=== PATIENT | male | born 1955 | race Hispanic/Latino ===

== ENCOUNTER 2023-03-30 10:48 | Inpatient (IN) | payer OTHER ==
[~2023-03-30] VITALS: Ht 152.4 cm; Wt 62.0 kg
[2023-03-30 12:13] LABS: BASOPHILS # (AUTO) 0.06 K/uL (0.00-0.20); BASOPHILS % (AUTO) 0.6 % (0.0-5.0); HEMATOCRIT 50.7 % (42-54); IMMATURE GRANULOCYTE ABSOLUTE 0.13 K/uL (0-1); LYMPHOCYTES # (AUTO) 1.3 K/uL (1.0-4.8); LYMPHOCYTES % (AUTO) 12.2 % (21.0-51.0); MEAN CORPUSCULAR HEMOGLOBIN 33.7 pg (27.0-33.0); MEAN CORPUSCULAR HGB CONC 34.9 g/dL (32.0-36.0); MEAN CORPUSCULAR VOLUME 96.4 fL (79-99); MONOCYTES # (AUTO) 1.2 K/uL (0.1-1.0); MONOCYTES % (AUTO) 11.4 % (3.0-13.0); NEUTROPHILS # (AUTO) 8.1 K/uL (1.8-7.7); NEUTROPHILS % (AUTO) 74.6 % (40.0-77.0); PLATELET COUNT (AUTO) 297 K/uL (130-400); RED BLOOD CELL COUNT(AUTO) 5.26 MIL/uL (4.50-6.20); RED CELL DISTRIBUTION WIDTH 12.8 % (11.0-15.5); WHITE BLOOD COUNT (AUTO) 10.9 K/uL (4.8-10.8)
[2023-03-30 12:22] LABS: CREATININE 0.9 mg/dL (0.5-1.5); POTASSIUM 4.4 mmol/L (3.5-5.1)
[2023-03-30 12:26] LABS: BILIRUBIN,TOTAL 0.7 mg/dL (0.2-1.0); MAGNESIUM 2.2 mg/dL (1.80-2.40)
[2023-03-30 12:52] LABS: APPEARANCE,URINE CLEAR (CLEAR); BILIRUBIN,URINE NEGATIVE (NEGATIVE); COLOR,URINE LIGHT-YELLOW (YELLOW); GLUCOSE, URINE (UA) NEGATIVE (NEGATIVE); KETONES,URINE 10 mg/dL (NEGATIVE); LEUKOCYTE ESTERASE ,URINE NEGATIVE Leu/uL (NEGATIVE); NITRATE,URINE NEGATIVE (NEGATIVE); OCCULT BLOOD,URINE NEGATIVE (NEGATIVE); PROTEIN,URINE NEGATIVE (NEGATIVE); UROBILINOGEN,URINE 0.2 mg/dL (0.2-1.0)
[2023-03-30 12:54] LABS: ADD UA MICROSCOPIC YES
[2023-03-30 13:01] LABS: RBC,URINE 0-1 /HPF (0-1); WBC,URINE 0-1 /HPF (0-1)
[2023-03-30] MEDS ORDERED: THIAMINE HCL 100 MG/ML 2ML VIAL IVP ONE (16:00)
[2023-03-30] MEDS: M.V.I. IV [ADULT] 10 ML, FOLIC ACID 1 MG, THIAMINE HCL 100 MG in 0.9%NACL 1000ML 1,000 ML IV SCH (16:27)
[2023-03-30] MEDS ORDERED: ACETAMINOPHEN 500 MG TABLET PO PRN (16:30)
[2023-03-30] MEDS ORDERED: NITROGLYCERIN 0.4 MG SL TAB SL PRN (16:30)
[2023-03-30] MEDS ORDERED: FOLIC ACID 5 MG/ML VIAL IV ONE (16:30)
[2023-03-30] MEDS ORDERED: CHLORDIAZEPOXIDE HCL 25 MG CAP PO PRN (16:30)
[2023-03-30] MEDS ORDERED: PHARMACY COMMUNICATION MISC PRN (16:30)
[2023-03-30] MEDS ORDERED: ONDANSETRON 4MG INJ IVP PRN (16:30)
[2023-03-30] MEDS ORDERED: LORAZEPAM 2 MG/ML 1 ML VIAL IVP PRN (16:30)
[2023-03-30 17:08] LABS: INR < 0.93 (0.85-1.15); PROTHROMBIN TIME 10.7 SEC (9.6-11.6)
[2023-03-30 17:09] LABS: PARTIAL THROMBOPLASTIN TIME 32.1 SEC (26.3-35.5)
[2023-03-30 17:30] LABS: THYROID STIMULATING HORMONE 2.28 uIU/mL (0.36-3.74)
[2023-03-30] MEDS ORDERED: HYDRALAZINE 20MG/ML VIAL IV PRN (19:00)
[2023-03-30] MEDS: FAMOTIDINE 20MG VIAL IV SCH (20:28)
[2023-03-30] MEDS: AMLODIPINE 5 MG TAB PO SCH (20:28)
[2023-03-30 21:30] LABS: AMPHET/METH SCREEN,URINE NEGATIVE (NEGATIVE); BARBITURATE SCREEN, URINE NEGATIVE (NEGATIVE); BENZODIAZEPINES SCREEN,URINE NEGATIVE (NEGATIVE); CANNABINOID SCREEN,URINE POSITIVE (NEGATIVE); COCAINE SCREEN,URINE NEGATIVE (NEGATIVE); OPIATE SCREEN,URINE NEGATIVE (NEGATIVE); PHENCYCLIDINE SCREEN,URINE NEGATIVE (NEGATIVE)
[2023-03-30 22:32] VITALS: O2SAT 96
[2023-03-30 23:23] VITALS: BP 178/82; PULSE 63; RESP 18
[2023-03-31] VITALS (8 sets, daily range): BP systolic 137–191; BP diastolic 62–96; PULSE 63–81; RESP 16–20; O2SAT 98
[2023-03-31 04:58] LABS: BASOPHILS # (AUTO) 0.09 K/uL (0.00-0.20); BASOPHILS % (AUTO) 1.1 % (0.0-5.0); HEMATOCRIT 48.4 % (42-54); IMMATURE GRANULOCYTE ABSOLUTE 0.08 K/uL (0-1); LYMPHOCYTES % (AUTO) 23.1 % (21.0-51.0); MEAN CORPUSCULAR HEMOGLOBIN 33.6 pg (27.0-33.0); MEAN CORPUSCULAR HGB CONC 34.3 g/dL (32.0-36.0); MONOCYTES # (AUTO) 0.9 K/uL (0.1-1.0); MONOCYTES % (AUTO) 11.1 % (3.0-13.0); NEUTROPHILS # (AUTO) 5.4 K/uL (1.8-7.7); NEUTROPHILS % (AUTO) 63.8 % (40.0-77.0); PLATELET COUNT (AUTO) 266 K/uL (130-400); RED BLOOD CELL COUNT(AUTO) 4.94 MIL/uL (4.50-6.20); RED CELL DISTRIBUTION WIDTH 12.7 % (11.0-15.5); WHITE BLOOD COUNT (AUTO) 8.5 K/uL (4.8-10.8)
[2023-03-31 05:30] LABS: ALBUMIN 2.9 g/dL (3.5-5.0); BILIRUBIN,TOTAL 0.7 mg/dL (0.2-1.0); CREATININE 0.8 mg/dL (0.5-1.5); POTASSIUM 3.6 mmol/L (3.5-5.1); TOTAL PROTEIN, SERUM 6.6 g/dL (6.0-8.3)
[2023-03-31] MEDS: FAMOTIDINE 20MG VIAL IV SCH ×2 (08:52→19:45)
[2023-03-31] MEDS: M.V.I. IV [ADULT] 10 ML, FOLIC ACID 1 MG, THIAMINE HCL 100 MG in 0.9%NACL 1000ML 1,000 ML IV SCH (09:58)
[2023-03-31] MEDS ORDERED: IOHEXOL-350 75 ML VIAL IV ONE (16:46)
[2023-03-31] MEDS: AMLODIPINE 5 MG TAB PO SCH (19:45)
[2023-04-01] VITALS (16 sets, daily range): BP systolic 117–173; BP diastolic 60–109; PULSE 64–83; RESP 16–20; O2SAT 97
[2023-04-01] MEDS: FAMOTIDINE 20MG VIAL IV SCH ×2 (09:52→20:01)
[2023-04-01] MEDS: M.V.I. IV [ADULT] 10 ML, FOLIC ACID 1 MG, THIAMINE HCL 100 MG in 0.9%NACL 1000ML 1,000 ML IV SCH (09:54)
[2023-04-01 10:07] LABS: CHOLESTEROL 153 mg/dL (<200); HDL CHOLESTEROL 45 mg/dL (29-71); LDL DIRECT 88 mg/dL (0-99); TRIGLYCERIDES 106 mg/dL (30-200)
[2023-04-01] MEDS: ASPIRIN 81 MG EC TAB PO SCH (15:28)
[2023-04-01] MEDS: AMLODIPINE 5 MG TAB PO SCH (18:51)
[2023-04-01] MEDS: ATORVASTATIN 40 MG TABLET PO SCH (20:01)
[2023-04-02] VITALS (11 sets, daily range): BP systolic 132–190; BP diastolic 70–97; PULSE 57–80; RESP 16–20; O2SAT 96
[2023-04-02] MEDS: M.V.I. IV [ADULT] 10 ML, FOLIC ACID 1 MG, THIAMINE HCL 100 MG in 0.9%NACL 1000ML 1,000 ML IV SCH (07:22)
[2023-04-02] MEDS ORDERED: COMPOUND IV REFRIGERATED 1 EACH MISC ONE (07:22)
[2023-04-02] MEDS: METOPROLOL TARTRATE 50 MG TAB PO SCH (08:06)
[2023-04-02] MEDS: FAMOTIDINE 20MG VIAL IV SCH ×2 (08:06→19:56)
[2023-04-02] MEDS: ASPIRIN 81 MG EC TAB PO SCH (08:06)
[2023-04-02] MEDS: AMLODIPINE 5 MG TAB PO SCH (18:27)
[2023-04-02] MEDS: ATORVASTATIN 40 MG TABLET PO SCH (19:56)
[2023-04-03] VITALS (9 sets, daily range): BP systolic 136–182; BP diastolic 56–93; PULSE 53–93; RESP 18–20; O2SAT 98
[2023-04-03] MEDS: METOPROLOL TARTRATE 50 MG TAB PO SCH (08:25)
[2023-04-03] MEDS: ASPIRIN 81 MG EC TAB PO SCH (08:25)
[2023-04-03] MEDS: FAMOTIDINE 20MG VIAL IV SCH ×2 (08:25→21:33)
[2023-04-03] MEDS ORDERED: METO50 PO (11:57)
[2023-04-03] MEDS ORDERED: AEC81 PO (11:57)
[2023-04-03] MEDS ORDERED: ATOR40TA69 PO (11:57)
[2023-04-03] MEDS: AMLODIPINE 5 MG TAB PO SCH (17:54)
[2023-04-03] MEDS: ATORVASTATIN 40 MG TABLET PO SCH (21:32)
[2023-04-04 04:00] VITALS: BP 156/87; PULSE 70; RESP 18
[2023-04-04 08:09] VITALS: BP 151/89; PULSE 72; RESP 18
[2023-04-04 09:30] VITALS: O2SAT 99
[2023-04-04] MEDS: METOPROLOL TARTRATE 50 MG TAB PO SCH (09:51)
[2023-04-04] MEDS: ASPIRIN 81 MG EC TAB PO SCH (09:51)
[2023-04-04] MEDS: FAMOTIDINE 20MG VIAL IV SCH (09:51)
[2023-04-04 11:58] VITALS: BP 153/67; PULSE 56; RESP 19
[2023-04-04] MEDS ORDERED: NITR0.4T50 SL (13:39)
== END 2023-04-04 17:20 | disposition home or self-care (01) | DRG 315 ==
LOC: EDH 10:48 → EDHIP 10:49 → 4DH 22:32
PROVIDERS: ADMIT Internal Medicine; ATTEND Internal Medicine
DX: I95.9 Hypotension, unspecified (principal); E44.0 Moderate protein-calorie malnutrition; E87.1 Hypo-osmolality and hyponatremia; I25.110 Atherosclerotic heart disease of native coronary artery with unstable angina pectoris; I48.92 Unspecified atrial flutter; I11.9 Hypertensive heart disease without heart failure; E86.0 Dehydration; I45.10 Unspecified right bundle-branch block; I73.9 Peripheral vascular disease, unspecified; E78.00 Pure hypercholesterolemia, unspecified; E86.1 Hypovolemia; F14.90 Cocaine use, unspecified, uncomplicated; F17.210 Nicotine dependence, cigarettes, uncomplicated; I65.21 Occlusion and stenosis of right carotid artery; F12.10 Cannabis abuse, uncomplicated; F10.20 Alcohol dependence, uncomplicated; K21.9 Gastro-esophageal reflux disease without esophagitis; Z82.3 Family history of stroke; Z82.49 Family history of ischemic heart disease and other diseases of the circulatory system; Z91.148 Patient's other noncompliance with medication regimen for other reason; Z79.01 Long term (current) use of anticoagulants; Z68.26 Body mass index [BMI] 26.0-26.9, adult
CPT/HCPCS: 36415; 70450; 70498; 71045; 72125; 73620; 76705; 80053; 80061; 80305; 81001; 82533; 82550; 83735; 83874; 83880; 84439; 84443; 84481; 84484; 85025; 85610; 85730; 87040; 93005; 93306; 93356; 93880; G0378; J0360; J2060; J3411; J3490; J7030; Q9967; 73560

== ENCOUNTER 2023-04-14 10:11 | Observation (INO) | payer OTHER ==
[~2023-04-14] VITALS: Ht 160 cm; Wt 61.3 kg
[~2023-04-14 10:11] MED LIST: AEC81 PO; ATOR40TA69 PO; METO50 PO; NITR0.4T50 SL
[2023-04-14 10:37] LABS: HEMATOCRIT 44.8 % (42-54); MEAN CORPUSCULAR HEMOGLOBIN 32.7 pg (27.0-33.0); MEAN CORPUSCULAR HGB CONC 33.3 g/dL (32.0-36.0); MEAN CORPUSCULAR VOLUME 98.2 fL (79-99); PLATELET COUNT (AUTO) 317 K/uL (130-400); RED BLOOD CELL COUNT(AUTO) 4.56 MIL/uL (4.50-6.20); RED CELL DISTRIBUTION WIDTH 11.9 % (11.0-15.5); WHITE BLOOD COUNT (AUTO) 8.5 K/uL (4.8-10.8)
[2023-04-14 10:46] LABS: POTASSIUM 4.1 mmol/L (3.5-5.1)
[2023-04-14] MEDS ORDERED: NITROGLYCERIN 1GM OINT 1 INCH/1GM TD ONE ×2 (10:46→11:00)
[2023-04-14 10:51] LABS: ALBUMIN 3.3 g/dL (3.5-5.0); BILIRUBIN,TOTAL 0.4 mg/dL (0.2-1.0); MAGNESIUM 2.2 mg/dL (1.80-2.40); TOTAL PROTEIN, SERUM 6.8 g/dL (6.0-8.3)
[2023-04-14 11:21] LABS: BASOPHILS % (AUTO) 1.2 % (0.0-5.0); IMMATURE GRANULOCYTE ABSOLUTE 0.05 K/uL (0-1); LYMPHOCYTES # (AUTO) 1.7 K/uL (1.0-4.8); LYMPHOCYTES % (AUTO) 19.5 % (21.0-51.0); MONOCYTES # (AUTO) 0.9 K/uL (0.1-1.0); NEUTROPHILS # (AUTO) 5.8 K/uL (1.8-7.7); NEUTROPHILS % (AUTO) 67.7 % (40.0-77.0)
[2023-04-14] MEDS ORDERED: ENOXAPARIN SODIUM 60 MG/0.6 ML SQ ONE (13:00)
[2023-04-14] MEDS ORDERED: LACTULOSE 20 GM/30 ML UDCUP PO PRN (14:00)
[2023-04-14] MEDS ORDERED: ONDANSETRON 4MG INJ IV PRN (14:00)
[2023-04-14] MEDS ORDERED: ACETAMINOPHEN 325 MG TAB PO PRN ×2 (14:00)
[2023-04-14] MEDS ORDERED: PHARMACY COMMUNICATION MISC PRN (14:30)
[2023-04-14] MEDS ORDERED: CHLORDIAZEPOXIDE HCL 25 MG CAP PO PRN (14:30)
[2023-04-14] MEDS ORDERED: LORAZEPAM 2 MG/ML 1 ML VIAL IVP PRN (14:30)
[2023-04-14] MEDS ORDERED: THIAMINE HCL 100 MG, FOLIC ACID 1 MG, M.V.I. IV [ADULT] 10 ML in 0.9%NACL 1000ML 1,000 ML IV SCH (14:30)
[2023-04-14 14:32] LABS: INR 0.94 (0.85-1.15); PROTHROMBIN TIME 10.9 SEC (9.6-11.6)
[2023-04-14 14:34] LABS: PARTIAL THROMBOPLASTIN TIME 31.9 SEC (26.3-35.5)
[2023-04-14 14:36] LABS: APPEARANCE,URINE CLEAR (CLEAR); BILIRUBIN,URINE NEGATIVE (NEGATIVE); COLOR,URINE YELLOW (YELLOW); GLUCOSE, URINE (UA) NEGATIVE (NEGATIVE); KETONES,URINE NEGATIVE (NEGATIVE); LEUKOCYTE ESTERASE ,URINE NEGATIVE Leu/uL (NEGATIVE); NITRATE,URINE NEGATIVE (NEGATIVE); OCCULT BLOOD,URINE NEGATIVE (NEGATIVE); PH,URINE 5.5 (5.0-8.0); PROTEIN,URINE NEGATIVE (NEGATIVE); UROBILINOGEN,URINE 0.2 mg/dL (0.2-1.0)
[2023-04-14 14:38] LABS: ADD UA MICROSCOPIC YES
[2023-04-14 14:46] LABS: AMPHET/METH SCREEN,URINE NEGATIVE (NEGATIVE); BARBITURATE SCREEN, URINE NEGATIVE (NEGATIVE); BENZODIAZEPINES SCREEN,URINE NEGATIVE (NEGATIVE); CANNABINOID SCREEN,URINE POSITIVE (NEGATIVE); COCAINE SCREEN,URINE NEGATIVE (NEGATIVE); OPIATE SCREEN,URINE NEGATIVE (NEGATIVE); PHENCYCLIDINE SCREEN,URINE NEGATIVE (NEGATIVE)
[2023-04-14 15:00] LABS: BACTERIA,URINE RARE /HPF (None Seen); MUCUS,URINE RARE LPF (None Seen); SQUAMOUS EPITHELIAL CELL,UR RARE /HPF (0-2); WBC,URINE 0-1 /HPF (0-1)
[2023-04-14] MEDS: FAMOTIDINE 20MG TAB PO SCH (20:55)
[2023-04-14 22:30] VITALS: BP 151/76; PULSE 58; RESP 18; O2SAT 97
[2023-04-15 04:28] VITALS: BP 136/66; PULSE 56; RESP 18
[2023-04-15 05:24] LABS: MEAN CORPUSCULAR HEMOGLOBIN 32.9 pg (27.0-33.0); MEAN CORPUSCULAR HGB CONC 33.6 g/dL (32.0-36.0); MEAN CORPUSCULAR VOLUME 98.1 fL (79-99); RED BLOOD CELL COUNT(AUTO) 4.28 MIL/uL (4.50-6.20); WHITE BLOOD COUNT (AUTO) 9.8 K/uL (4.8-10.8)
[2023-04-15 05:37] LABS: MAGNESIUM 2.1 mg/dL (1.80-2.40); POTASSIUM 4.4 mmol/L (3.5-5.1)
[2023-04-15 07:47] VITALS: BP 131/71; PULSE 56; RESP 16
[2023-04-15 08:00] VITALS: O2SAT 99
[2023-04-15] MEDS: FAMOTIDINE 20MG TAB PO SCH (08:44)
[2023-04-15] MEDS ORDERED: ENOXAPARIN SODIUM 30 MG/0.3 ML SQ SCH (09:00)
[2023-04-15] MEDS ORDERED: ASPIRIN 81 MG EC TAB PO SCH (09:00)
[2023-04-15] MEDS ORDERED: METOPROLOL TARTRATE 50 MG TAB PO SCH (09:00)
[2023-04-15] MEDS ORDERED: COMPOUND IV REFRIGERATED 1 EACH IVSOLN MISC PRN (11:30)
== END 2023-04-15 12:25 | disposition home or self-care (01) ==
LOC: EDH 10:11 → INTOOBSV 10:12 → EDHIP 10:12 → UNDOADMIN 13:39 → EDHIP 13:39 → 3AH 22:07 → EDHIP 22:07
PROVIDERS: ADMIT Internal Medicine; ATTEND Internal Medicine
DX: I20.0 Unstable angina (principal); I11.0 Hypertensive heart disease with heart failure; I50.33 Acute on chronic diastolic (congestive) heart failure; I48.91 Unspecified atrial fibrillation; K59.00 Constipation, unspecified; G47.00 Insomnia, unspecified; I65.29 Occlusion and stenosis of unspecified carotid artery; E78.5 Hyperlipidemia, unspecified; F12.90 Cannabis use, unspecified, uncomplicated; F17.200 Nicotine dependence, unspecified, uncomplicated; F19.10 Other psychoactive substance abuse, uncomplicated; Z79.82 Long term (current) use of aspirin; Z91.148 Patient's other noncompliance with medication regimen for other reason; Z91.199 Patient's noncompliance with other medical treatment and regimen due to unspecified reason; Z79.899 Other long term (current) drug therapy; Z98.890 Other specified postprocedural states
CPT/HCPCS: 96372 ×2; 96365; 96375; 99285; 83735 ×2; 84484 ×3; 80053; 83880; 80305; 85025; 85610; 85730; 81001; 36415 ×2; 71045; 93005 ×2; 80061; 80048; 85027; J7030; J3411; J2405; J3490; J1650 ×2; G0378 ×2

== ENCOUNTER 2023-05-13 15:06 | Inpatient (IN) | payer OTHER ==
[~2023-05-13] VITALS: Ht 180.3 cm; Wt 63.9 kg
[2023-05-13] MEDS ORDERED: DILTIAZEM 25MG INJ IVP ONE (15:30)
[2023-05-13 16:05] LABS: BASOPHILS # (AUTO) 0.05 K/uL (0.00-0.20); BASOPHILS % (AUTO) 0.6 % (0.0-5.0); HEMATOCRIT 42.9 % (42-54); IMMATURE GRANULOCYTE ABSOLUTE 0.11 K/uL (0-1); LYMPHOCYTES # (AUTO) 2.2 K/uL (1.0-4.8); LYMPHOCYTES % (AUTO) 23.9 % (21.0-51.0); MEAN CORPUSCULAR HEMOGLOBIN 32.2 pg (27.0-33.0); MEAN CORPUSCULAR HGB CONC 33.8 g/dL (32.0-36.0); MEAN CORPUSCULAR VOLUME 95.3 fL (79-99); MONOCYTES % (AUTO) 10.8 % (3.0-13.0); NEUTROPHILS # (AUTO) 5.7 K/uL (1.8-7.7); NEUTROPHILS % (AUTO) 63.5 % (40.0-77.0); PLATELET COUNT (AUTO) 270 K/uL (130-400); RED CELL DISTRIBUTION WIDTH 11.9 % (11.0-15.5)
[2023-05-13 16:17] LABS: POTASSIUM 4.3 mmol/L (3.5-5.1)
[2023-05-13 16:22] LABS: ALBUMIN 3.1 g/dL (3.5-5.0); BILIRUBIN,TOTAL 0.2 mg/dL (0.2-1.0)
[2023-05-13] MEDS ORDERED: DEXTROSE 50%-WATER 50 ML DISP.SYRIN IV PRN (22:00)
[2023-05-13] MEDS ORDERED: GLUCAGON 1MG KIT 1 MG ML IM PRN (22:00)
[2023-05-13] MEDS ORDERED: ONDANSETRON 4MG INJ IV PRN (22:00)
[2023-05-13] MEDS ORDERED: NITROGLYCERIN 0.4 MG SL TAB SL PRN (22:00)
[2023-05-13] MEDS ORDERED: ACETAMINOPHEN 325 MG TAB PO PRN ×2 (22:00)
[2023-05-14] VITALS (9 sets, daily range): BP systolic 123–154; BP diastolic 58–87; PULSE 54–71; RESP 18; O2SAT 96–98
[2023-05-14 04:06] LABS: AMPHET/METH SCREEN,URINE NEGATIVE (NEGATIVE); BARBITURATE SCREEN, URINE NEGATIVE (NEGATIVE); BENZODIAZEPINES SCREEN,URINE NEGATIVE (NEGATIVE); CANNABINOID SCREEN,URINE NEGATIVE (NEGATIVE); COCAINE SCREEN,URINE NEGATIVE (NEGATIVE); OPIATE SCREEN,URINE NEGATIVE (NEGATIVE); PHENCYCLIDINE SCREEN,URINE NEGATIVE (NEGATIVE)
[2023-05-14 06:25] LABS: HEMATOCRIT 47.6 % (42-54); MEAN CORPUSCULAR HEMOGLOBIN 31.6 pg (27.0-33.0); MEAN CORPUSCULAR HGB CONC 32.4 g/dL (32.0-36.0); MEAN CORPUSCULAR VOLUME 97.7 fL (79-99); RED BLOOD CELL COUNT(AUTO) 4.87 MIL/uL (4.50-6.20); RED CELL DISTRIBUTION WIDTH 11.9 % (11.0-15.5)
[2023-05-14 06:46] LABS: ALBUMIN 3.2 g/dL (3.5-5.0); BILIRUBIN,TOTAL 0.4 mg/dL (0.2-1.0); POTASSIUM 4.5 mmol/L (3.5-5.1); THYROID STIMULATING HORMONE 3.61 uIU/mL (0.36-3.74); TOTAL PROTEIN, SERUM 7.4 g/dL (6.0-8.3)
[2023-05-14] MEDS: INSULIN HUMULIN R 100 UNIT/ML 3ML SQ SCH ×4 (07:30→20:54)
[2023-05-14] MEDS ORDERED: METOPROLOL TARTRATE 25 MG TAB PO SCH (09:00)
[2023-05-14] MEDS: FAMOTIDINE 20MG TAB PO SCH ×2 (09:41→20:52)
[2023-05-14] MEDS: ENOXAPARIN SODIUM 30 MG/0.3 ML SQ SCH (09:41)
[2023-05-14] MEDS: METOPROLOL TARTRATE 25 MG TAB PO SCH (20:50)
[2023-05-14] MEDS: ASPIRIN 81 MG EC TAB PO SCH (20:51)
[2023-05-14] MEDS ORDERED: ATORVASTATIN 40 MG TABLET PO SCH (21:00)
[2023-05-15 08:00] VITALS: O2SAT 96
[2023-05-15] MEDS: FAMOTIDINE 20MG TAB PO SCH (09:00)
[2023-05-15] MEDS: ENOXAPARIN SODIUM 30 MG/0.3 ML SQ SCH (09:00)
[2023-05-15] MEDS: METOPROLOL TARTRATE 25 MG TAB PO SCH (09:00)
[2023-05-15] MEDS: ASPIRIN 81 MG EC TAB PO SCH (09:00)
[2023-05-15 14:42] LABS: BASOPHILS # (AUTO) 0.06 K/uL (0.00-0.20); BASOPHILS % (AUTO) 0.7 % (0.0-5.0); HEMATOCRIT 44.4 % (42-54); IMMATURE GRANULOCYTE ABSOLUTE 0.11 K/uL (0-1); LYMPHOCYTES # (AUTO) 2.1 K/uL (1.0-4.8); MEAN CORPUSCULAR HEMOGLOBIN 31.9 pg (27.0-33.0); MEAN CORPUSCULAR HGB CONC 32.9 g/dL (32.0-36.0); MEAN CORPUSCULAR VOLUME 96.9 fL (79-99); MONOCYTES # (AUTO) 0.9 K/uL (0.1-1.0); MONOCYTES % (AUTO) 10.7 % (3.0-13.0); NEUTROPHILS # (AUTO) 5.3 K/uL (1.8-7.7); NEUTROPHILS % (AUTO) 62.3 % (40.0-77.0); PLATELET COUNT (AUTO) 239 K/uL (130-400); RED BLOOD CELL COUNT(AUTO) 4.58 MIL/uL (4.50-6.20); RED CELL DISTRIBUTION WIDTH 11.9 % (11.0-15.5); WHITE BLOOD COUNT (AUTO) 8.5 K/uL (4.8-10.8)
[2023-05-15 16:00] VITALS: BP 129/76; PULSE 65; RESP 18
[2023-05-15 17:06] LABS: CREATININE 1.2 mg/dL (0.5-1.5); MAGNESIUM 2.2 mg/dL (1.80-2.40); POTASSIUM 4.7 mmol/L (3.5-5.1)
== END 2023-05-15 16:35 | disposition home or self-care (01) | DRG 310 ==
LOC: EDH 15:06 → EDHIP 15:07 → 3AH 05-14 02:25
PROVIDERS: ADMIT Hospitalist; ATTEND Hospitalist
DX: I48.92 Unspecified atrial flutter (principal); I48.91 Unspecified atrial fibrillation; I25.10 Atherosclerotic heart disease of native coronary artery without angina pectoris; E78.00 Pure hypercholesterolemia, unspecified; I10 Essential (primary) hypertension; I73.9 Peripheral vascular disease, unspecified; Z79.82 Long term (current) use of aspirin; Z79.899 Other long term (current) drug therapy; Z87.891 Personal history of nicotine dependence
CPT/HCPCS: 36415; 71045; 80048; 80053; 80305; 82948; 83735; 83880; 84443; 84484; 85025; 85027; 93005; G0378; J1650

== ENCOUNTER 2023-12-12 17:36 | Emergency (ER) | payer MEDICAID, OTHER ==
[~2023-12-12] VITALS: Ht 165.1 cm; Wt 68.0 kg
[2023-12-12 18:06] LABS: BASOPHILS # (AUTO) 0.05 K/uL (0.00-0.20); BASOPHILS % (AUTO) 0.5 % (0.0-5.0); HEMATOCRIT 43.9 % (42-54); IMMATURE GRANULOCYTE ABSOLUTE 0.11 K/uL (0-1); LYMPHOCYTES # (AUTO) 2.1 K/uL (1.0-4.8); LYMPHOCYTES % (AUTO) 21.6 % (21.0-51.0); MEAN CORPUSCULAR HEMOGLOBIN 32.2 pg (27.0-33.0); MEAN CORPUSCULAR HGB CONC 33.5 g/dL (32.0-36.0); MEAN CORPUSCULAR VOLUME 96.1 fL (79-99); MONOCYTES # (AUTO) 0.9 K/uL (0.1-1.0); MONOCYTES % (AUTO) 9.5 % (3.0-13.0); NEUTROPHILS # (AUTO) 6.4 K/uL (1.8-7.7); NEUTROPHILS % (AUTO) 67.2 % (40.0-77.0); PLATELET COUNT (AUTO) 230 K/uL (130-400); RED BLOOD CELL COUNT(AUTO) 4.57 MIL/uL (4.50-6.20); RED CELL DISTRIBUTION WIDTH 13.8 % (11.0-15.5); WHITE BLOOD COUNT (AUTO) 9.6 K/uL (4.8-10.8)
[2023-12-12 18:17] LABS: CREATININE 1.1 mg/dL (0.5-1.3); POTASSIUM 4.1 mmol/L (3.5-5.1)
[2023-12-12 18:22] LABS: ALBUMIN 3.2 g/dL (3.5-5.0); BILIRUBIN,TOTAL 0.3 mg/dL (0.2-1.0); TOTAL PROTEIN, SERUM 6.5 g/dL (6.0-8.3)
[2023-12-12] MEDS: 0.9%NACL 1000ML 1,000 ML IV SCH (20:06)
[2023-12-12 20:55] VITALS: BP 112/72; PULSE 77; RESP 18; O2SAT 99
== END 2023-12-12 20:59 | disposition home or self-care (01) ==
LOC: EDH 17:36
DX: I10 Essential (primary) hypertension (principal); I48.91 Unspecified atrial fibrillation; Z79.82 Long term (current) use of aspirin; Z79.899 Other long term (current) drug therapy
CPT/HCPCS: 99284; 70450; 96360; 80053; 85025; 36415; 72125; J7030

== ENCOUNTER 2024-01-21 13:33 | Emergency (ER) | payer MEDICAID ==
[~2024-01-21] VITALS: Ht 167.6 cm; Wt 66.2 kg
[2024-01-21 15:07] VITALS: BP 146/68; PULSE 70; RESP 17; O2SAT 97
== END 2024-01-21 15:45 | disposition home or self-care (01) ==
LOC: EDH 13:33
DX: S29.012A Strain of muscle and tendon of back wall of thorax, initial encounter (principal); I10 Essential (primary) hypertension; M19.90 Unspecified osteoarthritis, unspecified site; Z79.82 Long term (current) use of aspirin; Z79.899 Other long term (current) drug therapy; Z98.890 Other specified postprocedural states; X58.XXXA Exposure to other specified factors, initial encounter; Y93.89 Activity, other specified; Y92.89 Other specified places as the place of occurrence of the external cause; Y99.8 Other external cause status
CPT/HCPCS: 70450; 72040; 72070

== ENCOUNTER 2024-07-29 08:51 | Emergency (ER) | payer MEDICAID ==
[~2024-07-29] VITALS: Ht 170.2 cm; Wt 77.1 kg
[2024-07-29 08:52] VITALS: BP 180/89; PULSE 67; RESP 20; TEMP 98.4
--- NOTE | 2024-07-29 09:05 | ERN ---
General Chief Complaint: Medical Clearance Stated Complaint: MEDICAL CLEARANCE Time Seen by MD: 08:52 Source: patient, family History of Present Illness Initial Comments PATIENT IS A 68-YEAR-OLD MALE COMING IN TO BE EVALUATED FOR GENERALIZED WORKUP. PER PATIENT HE WAS SEEN BY APS ON THE OF THIS MONTH AND WAS ADVISED TO GO TO THE HOSPITAL AFTER HE DID CANNABIS. PATIENT STATES THAT HE HAS NO CURRENT COMPLAINTS AND FEELS GOOD. Allergies: Coded Allergies: No Known Drug Allergies (Unverified Allergy, Unknown, 03/30/23) Home Meds Active Scripts Nitroglycerin (Nitroglycerin) 0.4 Mg Tab.subl, 0.4 MG SL AD PRN for chest pain for 30 Days, #30 TAB.SL Prov:ALEX ROSS NP 04/04/23 Metoprolol Tartrate (Lopressor 50Mg Tab) 50 Mg Tab, 50 MG PO DAILY for 30 Days, #60 TAB Prov:ALEX ROSS NP 04/03/23 Atorvastatin Calcium (LIPITOR) 40 Mg Tablet, 40 MG PO HS for 30 Days, #30 TAB Prov:ALEX ROSS NP 04/03/23 Aspirin (ASPIRIN 81 MG ECTAB) 81 Mg Ectab, 81 MG PO DAILY for 30 Days, #30 TAB.EC Prov:ALEX ROSS NP 04/03/23 Past Medical History Past Medical History: High Cholesterol, Heart Disease, Hypertension Past Surgical History: Other Surgical History Other: HEART CATH Social History Social History: Lives with family, Other ROS Dictation CONSTITUTIONAL: NO CHILLS, NO FEVER, NO WEAKNESS, NO DIAPHORESIS, NO MALAISE. HEAD/FACE: NO SIGNS OF TRAUMA. EENT: NO EYE PAIN, NO BLURRED VISION, NO TEARING, NO DOUBLE VISION, NO EAR PAIN, NO EAR DISCHARGE, NO NOSE PAIN, NO NASAL CONGESTION, NO THROAT PAIN, NO THROAT SWELLING, NO MOUTH PAIN. RESPIRATORY: NO COUGH, NO ORTHOPNEA, NO SOB, NO STRIDOR, NO WHEEZING. CARDIOVASCULAR: NO CHEST PAIN, NO EDEMA, NO PALPITATIONS, NO SYNCOPE. GASTROINTESTINAL/ABDOMINAL: NO ABDOMINAL PAIN, NO CONSTIPATION, NO DIARRHEA, NO NAUSEA, NO VOMITING. GENITOURINARY: NO ABNORMAL DISCHARGE, NO DYSURIA, NO FREQUENT URINATION, NO HEMATURIA. NO COMPLAINTS OF PAIN IN THE GENITALS. MUSCULOSKELETAL: NO BACK PAIN, NO GOUT, NO JOINT PAIN, NO JOINT SWELLING, NO MUSCLE PAIN, NO MUSCLE STIFFNESS, NO NECK PAIN. INTEGUMENTARY: NO CHANGE IN COLOR, NO CHANGE IN HAIR/NAILS, NO DRYNESS, NO LESION, NO LUMPS, NO RASH. NEUROLOGICAL/PSYCH: NO ANXIETY, NOT DEPRESSED, NO EMOTIONAL PROBLEM, NO HEADACHE, NO NUMBNESS, NO PRE-EXISTING DEFICIT, NO HISTORY OF SEIZURES, NO TREMORS, NO WEAKNESS. HEMATOLOGIC/LYMPHATIC: NOT ANEMIC, NO HISTORY OF BLOOD CLOTS, NO APPARENT BLEED ING, NO BRUISING, GLANDS NOT SWOLLEN. ALL SYSTEMS NEGATIVE, EXCEPT NOTED. Physical Exam Physical Exam Dictation VITAL SIGNS: REVIEWED. GENERAL APPEARANCE: ALERT, ORIENTED X3, NO ACUTE DISTRESS, OBESE. HEAD AND FACE: NON-TRAUMATIC. EYES: PERRL, PINK CONJUNCTIVAS, EYELID NO TRAUMA, ANTERIOR CHAMBER CLEAR. EARS: PINNAS INTACT AND NO SIGNS OF TRAUMA OR ERYTHEMA. EAR CANALS CLEAR AND NO DISCHARGE. TMS NO ERYTHEMA. NOSE: NO DISCHARGE, NO BLEEDING. OROPHARYNX: MOUTH NORMAL, TEETH NO CARIES, TONGUE PINK. PHARYNX CLEAR, NO ERYTHEMA. TONSILS NO EXUDATES, NO ABSCESSES NOTED. MUCOUS MEMBRANE MOIST. NECK: SUPPLE, NON-TENDER, NO THYROMEGALY, NO MASSES, NO JVD, NO BRUITS. BREAST: DEFERRED. CHEST: NO TENDERNESS, NO CREPITUS, NO PARADOXICAL MOVEMENT, NO RETRACTIONS. LUNGS: CLEAR, WELL-VENTILATED, SYMMETRIC, NO RALES, NO WHEEZING, NO RHONCHI, NO STRIDOR, GOOD BREATH SOUNDS BILATERALLY. HEART: REGULAR RATE, REGULAR RHYTHM, NO MURMUR, NO GALLOPS. VASCULAR: NO PERIPHERAL EDEMA. ABDOMEN: SOFT, POSITIVE BOWEL SOUNDS, NONDISTENDED, NO GUARDING, NONTENDER, NO REBOUND, NO MASSES NO HEPATOMEGALY, NO SPLENOMEGALY, NO SMILEY'S SIGN, NO HERNIAS. RECTAL: DEFERRED. GENITAL: DEFERRED. NEUROLOGICAL: NORMAL SPEECH, GROSS MOTOR FUNCTION INTACT, GROSS SENSORY FUNCTION INTACT. MUSCULOSKELETAL: NECK NONTENDER, FULL RANGE OF MOTION, BACK NONTENDER, FULL RANGE OF MOTION. EXTREMITIES: NONTENDER, FULL RANGE OF MOTION. SKIN: COLOR PINK, DRY, NO TURGOR, NO RASH, NO LACERATIONS, NO ABRASIONS, NO CONTUSIONS. LYMPHATICS: DEFERRED. Results Laboratory and Microbiology Labs Reviewed?: Yes MDM MDM: DIFFERENTIAL DIAGNOSIS: WELLNESS EXAM, PATIENT IS A 68-YEAR-OLD MALE COMING IN TO HAVE GENERALIZED LABS COLLECTED. PATIENT STATES HE HAS NO COMPLAINT. I ASKED HIM SEVERAL TIMES IF THERE IS NO C OMPLAINTS HE STATES HE FEELS GOOD AND DOES NOT KNOW WHY HE WAS SENT HERE. HE STATES HE WILL FOLLOW UP WITH HIS PCP TO HAVE OUTPATIENT LABS DRAWN. PATIENT WILL BE DISCHARGED IN STABLE CONDITION HE STATES HE FEELS GOOD, HAS NO COMPLAINTS. DX & DISP Disposition: Discharge Departure Impression: Primary Impression: Wellness examination Condition: Stable Referrals: NONE (PCP) DICKSON FARR MD Jul 29, 2024 09:05
== END 2024-07-29 11:20 | disposition home or self-care (01) ==
LOC: EDH 08:51
DX: Z00.00 Encounter for general adult medical examination without abnormal findings (principal); E78.00 Pure hypercholesterolemia, unspecified; I11.9 Hypertensive heart disease without heart failure; Z79.82 Long term (current) use of aspirin; Z79.899 Other long term (current) drug therapy; Z98.890 Other specified postprocedural states
CPT/HCPCS: 99281

== ENCOUNTER 2024-07-31 11:40 | Emergency (ER) | payer MEDICAID ==
[~2024-07-31] VITALS: Ht 167.6 cm; Wt 63.0 kg
[2024-07-31 11:49] VITALS: BP 155/83; PULSE 66; RESP 18; TEMP 97.7; O2SAT 96
--- NOTE | 2024-07-31 11:56 | ERN ---
ED Note History of Present Illness Stated Complaint: CP Chief Complaint: Chest Pain Time Seen by MD: 11:48 Dictation: PATIENT IS A 68-YEAR-OLD MALE COMING IN TODAY WITH COMPLAINTS OF HAVING CHEST PAIN WITH MILD SHORTNESS BREATH FOR ONE YEAR. HE STATES IT ONLY GOT SUSPICI OUS TODAY WHEN HE FELT HIS EARS WERE GOING TO POP. HE STATES HE IS COMPLIANT WITH HIS MEDICATIONS, NO NAUSEA VOMITING NO BACK PAIN. PATIENT OF , LAST SAW HIM SEVERAL MONTHS Allergies: Coded Allergies: No Known Drug Allergies (Unverified Allergy, Unknown, 03/30/23) Home Meds Active Scripts Nitroglycerin (Nitroglycerin) 0.4 Mg Tab.subl, 0.4 MG SL AD PRN for chest pain for 30 Days, #30 TAB.SL Prov:ALEX ROSS NP 04/04/23 Metoprolol Tartrate (Lopressor 50Mg Tab) 50 Mg Tab, 50 MG PO DAILY for 30 Days, #60 TAB Prov:ALEX ROSS NP 04/03/23 Atorvastatin Calcium (LIPITOR) 40 Mg Tablet, 40 MG PO HS for 30 Days, #30 TAB Prov:ALEX ROSS NP 04/03/23 Aspirin (ASPIRIN 81 MG ECTAB) 81 Mg Ectab, 81 MG PO DAILY for 30 Days, #30 TAB.EC Prov:ALEX ROSS NP 04/03/23 Past Medical History Past Medical History: CAD, Diabetes-Type II, High Cholesterol, Heart Disease Surgical History: Other Surgical History Other: HEART CATH Social History: Lives with family, Other RN Note Reviewed/Agreed w/PFSH: Yes Review of System Dictation CONSTITUTIONAL: NEGATIVE EXCEPT FOR HPI HEAD/FACE: NEGATIVE EXCEPT FOR HPI EENT: NEGATIVE EXCEPT FOR HPI RESPIRATORY: NEGATIVE EXCEPT FOR HPI CHEST PAIN GASTROINTESTINAL/ABDOMINAL: NEGATIVE EXCEPT FOR HPI GENITOURINARY: NEGATIVE EXCEPT FOR HPI MUSCULOSKELETAL: NEGATIVE EXCEPT FOR HPI INTEGUMENTARY: NEGATIVE EXCEPT FOR HPI NEUROLOGICAL/PSYCH: NEGATIVE EXCEPT FOR HPI HEMATOLOGIC/LYMPHATIC: NEGATIVE EXCEPT FOR HPI ALL SYSTEMS NEGATIVE, EXCEPT NOTED ABOVE. 13 POINT REVIEW OF SYSTEMS ASSESSED AND ALL NEGATIVE EXCEPT FOR ABOVE. Initial Vital Sign VS Vital Signs Date Time Temp Pulse Resp B/P (MAP) Pulse Ox O2 Delivery O2 Flow Rate FiO2 07/31/24 11:42 97.7 66 18 155/83 96 Room Air 0 07/31/24 11:49 21 Physical Exam Dictation VITAL SIGNS REVIEWED GENERAL APPEARANCE: ALERT, ORIENTED X 3, NO ACUTE DISTRESS, WELL DEVELOPED, NOURISHED. HEAD AND FACE: NON-TRAUMATIC. EYES: PERRL, PINK CONJUNCTIVAS, EYELID NO TRAUMA, ANTERIOR CHAMBER WITH ARCUS SENILIS. EARS: PINNAS INTACT AND NO SIGNS OF TRAUMA OR ERYTHEMA EAR CANALS CLEAR AND NO DISCHARGE TM NO ERYTHEMA NOSE: NO DISCHARGE, NO BLEEDING. OROPHARYNX: MOUTH NORMAL, TONGUE PINK, PHARYNX CLEAR,NO ERYTHEMA, TONSILS NO EXUDATES, NO ABSCESSES NOTED, MUCOUS MEMBRANE MOIST NECK: SUPPLE, NON-TENDER, NO THYROMEGALY, NO MASSES, NO JVD, NO BRUITS BREAST:DEFERRED CHEST:NO TENDERNESS, NO CREPITUS, NO PARADOXICAL MOVEMENT, NO RETRACTIONS LUNGS:CLEAR, WELL-VENTILATED, SYMMETRIC, NO RALES, NO WHEEZING, NO RHONCHI, NO STRIDOR, GOOD BREATH SOUNDS BILATERALLY HEART: REGULAR RATE, REGULAR RHYTHM, NO MURMUR, NO GALLOPS VASCULAR: NO PERIPHERAL EDEMA, ABDOMEN: SOFT, POSITIVE BOWEL SOUNDS, NONDISTENDED, NO GUARDING, NONTENDER, NO REBOUND, NO MASSES NO HEPATOMEGALY, NO SPLENOMEGALY, NO SMILEY'S SIGN, NO HERNIAS. RECTAL: DEFERRED GENITAL: DEFERRED NEUROLOGICAL: NORMAL SPEECH, MOTOR FUNCTION INTACT, SENSORY FUNCTION INTACT MUSCULOSKELETAL: NECK NONTENDER, FULL RANGE OF MOTION, BACK NONTENDER, FULL RANGE OF MOTION, EXTREMITIES: NONTENDER, FULL RANGE OF MOTION SKIN: COLOR PINK, DRY, NO TURGOR, NO RASH, NO LACERATIONS, NO ABRASIONS, NO CONTUSIONS. LYMPHATIC: DEFERRED Results (Laboratory/Radiology) Laboratory/Radiology Laboratory Tests Test 07/31/24 12:11 White Blood Count 9.4 K/uL (4.8-10.8) Red Blood Count 5.74 MIL/uL (4.50-6.20) Hemoglobin 18.4 g/dL (14.0-18.0) H Hematocrit 54.0 % (42-54) Mean Corpuscular Volume 94.1 fL (79-99) Mean Corpuscular Hemoglobin 32.1 pg (27.0-33.0) Mean Corpuscular Hemoglobin Concent 34.1 g/dL (32.0-36.0) Red Cell Distribution Width 12.9 % (11.0-15.5) Platelet Count 263 K/uL (130-400) Mean Platelet Volume 8.8 fL (7.5-10.5) Immature Granulocyte % (Auto) 0.6 % (0-1) Neutrophils (%) (Auto) 71.5 % (40.0-77.0) Lymphocytes (%) (Auto) 18.3 % (21.0-51.0) L Monocytes (%) (Auto) 8.9 % (3.0-13.0) Eosinophils (%) (Auto) 0.0 % (0.0-8.0) Basophils (%) (Auto) 0.7 % (0.0-5.0) Neutrophils # (Auto) 6.7 K/uL (1.8-7.7) Lymphocytes # (Auto) 1.7 K/uL (1.0-4.8) Monocytes # (Auto) 0.8 K/uL (0.1-1.0) Eosinophils # (Auto) 0.00 K/uL (0.00-0.70) Basophils # (Auto) 0.07 K/uL (0.00-0.20) Absolute Immature Granulocyte (auto 0.06 K/uL (0-1) Nucleated Red Blood Cells 0.0 % (0.0-0.19) Sodium Level 137 mmol/L (136-145) Potassium Level 4.5 mmol/L (3.5-5.1) Chloride Level 102 mmol/L (101-111) Carbon Dioxide Level 30 mmol/L (21-32) Blood Urea Nitrogen 9 mg/dL (7-18) Creatinine 1.0 mg/dL (0.5-1.3) Glomerular Filtration Rate Calc 82 mL/min (>90) Random Glucose 111 mg/dL (70-105) H Total Calcium 9.2 mg/dL (8.5-10.1) Magnesium Level 2.20 mg/dL (1.80-2.40) Troponin I High Sensitivity 46 ng/L (4-75) B-Type Natriuretic Peptide 65 pg/mL (0-100) Exam Type: CHEST 1VW Clinical Information: CHEST PAIN, ONE YEAR Comparison: None Findings: The lungs are clear of infiltrates. The heart is normal in size. The bony and soft tissue structures of the chest are unremarkable. Impression: Clear lungs. Labs Reviewed?: Yes EKG Comment: EKG SINUS RHYTHM WITH A AN INTRAVENTRICULAR CONDUCTION BLOCK HEART RATE 62/ELEVATED T-WAVES IN LATERAL LEADS V4 THROUGH SIX ED Course ED Course Orders Procedure Category Date Status Time Cbc With Differential LAB 07/31/24 Complete 11:54 B-Type Natriuretic LAB 07/31/24 Complete Peptide 11:54 Chest 1vw RAD 07/31/24 Resulted 11:54 12 Lead Ekg Tracing- EKG 07/31/24 Resulted Technical 11:54 Magnesium LAB 07/31/24 Complete 11:54 Troponin I High LAB 07/31/24 Complete Sensitivity 11:54 Basic Metabolic Panel LAB 07/31/24 Complete 11:54 Vital Signs Date Time Temp Pulse Resp B/P (MAP) Pulse Ox O2 Delivery O2 Flow Rate FiO2 07/31/24 11:49 97.7 66 18 155/83 96 Room Air* 0 21 07/31/24 11:42 97.7 66 18 155/83 96 Room Air 0 HEART Score Response (Comments) Value EKG: Repolarization changes 1 Age: > 65yrs (+2) 2 Risk Factors: 1-2 risk factors (+1) 1 Initial Troponin: Normal limit (0) 0 Total 4 Medical Decision Making MDM PATIENT LEFT AGAINST MEDICAL ADVICE DX & DISP Disposition: AMA Departure Impression: Primary Impression: Atypical chest pain Additional Impression: Dehydration Condition: Stable Referrals: NONE (PCP) I have reviewed the case, and I agree with, Diagnosis and Plan ENOC MENA NP Jul 31, 2024 11:56
[2024-07-31 12:18] LABS: BASOPHILS # (AUTO) 0.07 K/uL (0.00-0.20); BASOPHILS % (AUTO) 0.7 % (0.0-5.0); IMMATURE GRANULOCYTE ABSOLUTE 0.06 K/uL (0-1); LYMPHOCYTES # (AUTO) 1.7 K/uL (1.0-4.8); LYMPHOCYTES % (AUTO) 18.3 % (21.0-51.0); MEAN CORPUSCULAR HEMOGLOBIN 32.1 pg (27.0-33.0); MEAN CORPUSCULAR HGB CONC 34.1 g/dL (32.0-36.0); MEAN CORPUSCULAR VOLUME 94.1 fL (79-99); MONOCYTES # (AUTO) 0.8 K/uL (0.1-1.0); MONOCYTES % (AUTO) 8.9 % (3.0-13.0); NEUTROPHILS # (AUTO) 6.7 K/uL (1.8-7.7); NEUTROPHILS % (AUTO) 71.5 % (40.0-77.0); PLATELET COUNT (AUTO) 263 K/uL (130-400); RED BLOOD CELL COUNT(AUTO) 5.74 MIL/uL (4.50-6.20); RED CELL DISTRIBUTION WIDTH 12.9 % (11.0-15.5); WHITE BLOOD COUNT (AUTO) 9.4 K/uL (4.8-10.8)
[2024-07-31 12:28] LABS: MAGNESIUM 2.2 mg/dL (1.80-2.40); POTASSIUM 4.5 mmol/L (3.5-5.1)
--- NOTE | 2024-07-31 12:41 | HMCIMG ---
Exam Type: CHEST 1VW Clinical Information: CHEST PAIN, ONE YEAR Comparison: None Findings: The lungs are clear of infiltrates. The heart is normal in size. The bony and soft tissue structures of the chest are unremarkable. Impression: Clear lungs.
[2024-07-31 13:02] LABS: B-TYPE NATRIURETIC PEPTIDE 65 pg/mL (0-100)
--- NOTE | 2024-07-31 13:38 | EKG ---
[facility] Test Date: 2024-07-31 Test Time: 11:42:07 Pat Name: AVERY HERRERA Department: ED Room: Gender: M Signal Intelligence Analyst: [id number] : [id number] Requested By: ENOC MENA Order Number: [id number] Reading MD: Dipesh Orona Measurements Intervals [place] Rate: 62 P: 78 [place]: 168 QRS: 114 QRSD: 123 T: 63 QT: 422 QTc: 430 Interpretive Statements Sinus rhythm Nonspecific intraventricular conduction delay Nonspecific T abnrm, anterolateral leads Compared to ECG 05/13/2023 14:59:36 Intraventricular conduction delay now present Atrial fibrillation no longer present Electronically Signed On 07-31-2024 14:10:18 ADVERTISING AGENCY MANAGER by Dipesh Orona Please click the below link to view image of tracing.
--- NOTE | 2024-07-31 16:21 | NUR ---
PATIENT ELOPED. PATIENT CALLED MULTIPLE TIMES. PATIENT NOT FOUND.
== END 2024-07-31 16:23 | disposition left against medical advice (07) ==
LOC: EDH 11:40
DX: R07.89 Other chest pain (principal); E86.0 Dehydration; E11.9 Type 2 diabetes mellitus without complications; E78.00 Pure hypercholesterolemia, unspecified; I25.10 Atherosclerotic heart disease of native coronary artery without angina pectoris; Z79.82 Long term (current) use of aspirin; Z79.899 Other long term (current) drug therapy; Z98.890 Other specified postprocedural states
CPT/HCPCS: 36415; 71045; 80048; 83735; 83880; 84484; 85025; 93005; 99285